=== PATIENT | male | born 1980 | race Caucasian/White ===

== ENCOUNTER 2020-06-13 06:19 | Emergency (ER) | payer MEDICAID ==
[~2020-06-13] VITALS: Ht 190.5 cm; Wt 113.4 kg
--- NOTE | 2020-06-13 06:21 | NUR ---
PATIENT TAKEN TO BED 11 VIA GURNEY BY EMS.
[2020-06-13 06:22] VITALS: BP 129/50
[2020-06-13] MEDS ORDERED: ASPIRIN 81 MG TAB.CHEW PO ONE (06:25)
--- NOTE | 2020-06-13 06:30 | NUR ---
SEE COMPLETE ASSESSMENT.
--- NOTE | 2020-06-13 06:35 | NUR ---
LABS DRAWN AND TAKEN TO LAB.
[2020-06-13 06:58] LABS: BASOPHILS # (AUTO) 0.1 K/uL (0.00-0.22); BASOPHILS % (AUTO) 0.9 % (0.0-2.0); EOSINOPHILS # (AUTO) 0.7 K/uL (0-0.4); EOSINOPHILS % (AUTO) 6.8 % (0.0-4.0); HEMATOCRIT 45.6 % (36-52); HEMOGLOBIN 14.9 g/dL (12.0-18.0); LYMPHOCYTES # (AUTO) 3.3 K/uL (2.0-11.5); LYMPHOCYTES % (AUTO) 32.5 % (20.5-51.1); MEAN CORPUSCULAR HEMOGLOBIN 27 pg (27-31); MEAN CORPUSCULAR HGB CONC 33 g/dL (33-37); MEAN CORPUSCULAR VOLUME 83.8 fL (80-94); MONOCYTES # (AUTO) 0.8 K/uL (0.8-1.0); MONOCYTES % (AUTO) 7.4 % (1.7-9.3); NEUTROPHILS # (AUTO) 5.3 K/uL (1.8-7.7); NEUTROPHILS % (AUTO) 52.4 % (42.2-75.2); PLATELET COUNT (AUTO) 233 K/uL (140-450); RED BLOOD CELL COUNT(AUTO) 5.44 MIL/uL (4.20-6.10); RED CELL DISTRIBUTION WIDTH 14.2 % (11.6-13.7); WHITE BLOOD COUNT (AUTO) 10.2 K/uL (4.8-10.8)
[2020-06-13 07:03] LABS: ALBUMIN 4.1 g/dL (3.4-5.0); ANION GAP 14.7 (8-16); CARBON DIOXIDE 25.5 mmol/L (21-32); CREATININE 0.9 mg/dL (0.6-1.3); POTASSIUM 4.2 mmol/L (3.5-5.1); TOTAL BILIRUBIN 0.7 mg/dL (0.0-1.0)
--- NOTE | 2020-06-13 07:16 | NUR ---
REPORT GIVEN TO HELADIO ARDON. TRANSFER OF CARE.
--- NOTE | 2020-06-13 07:28 | NUR ---
XRAY AT BEDSIDE.
[2020-06-13] MEDS ORDERED: NACL 0.9% 500 ML IV ONE (07:50)
[2020-06-13] MEDS ORDERED: KETOROLAC 30 MG/ML VIAL IVP ONE (07:50)
--- NOTE | 2020-06-13 09:54 | NUR ---
COVID SWAB PERFORMED AT BEDSIDE
[2020-06-13 10:42] VITALS: BP 129/81
--- NOTE | 2020-06-14 08:47 | NUR ---
LATE ENTRY -- NORMAL SALINE INFUSION COMPLETED AT 0914 06/13/20
== END 2020-06-13 10:43 | disposition home or self-care (01) ==
LOC: MED 06:19
DX: R07.9 Chest pain, unspecified (principal); I10 Essential (primary) hypertension; F17.200 Nicotine dependence, unspecified, uncomplicated; Z20.828 Contact with and (suspected) exposure to other viral communicable diseases
CPT/HCPCS: 36415; 71045; 80053; 83880; 84484; 85025; 85379; 87426; 93005; 96361; 96374; 99285; J1885; J7030

== ENCOUNTER 2020-09-20 10:06 | Emergency (ER) | payer MEDICAID ==
[~2020-09-20] VITALS: Ht 190.5 cm; Wt 112.0 kg
--- NOTE | 2020-09-20 10:06 | NUR ---
Patient BIBA ALS, transferred to bed 8. RN evaluating the patient at bedside.
[2020-09-20] MEDS ORDERED: ASPIRIN 81 MG TAB.CHEW PO ONE (10:20)
[2020-09-20] MEDS ORDERED: NITROGLYCERIN 0.4 MG TAB SL ONE (10:20)
--- NOTE | 2020-09-20 10:25 | NUR ---
OSIEL TURNER COLLECTED.
[2020-09-20 10:32] VITALS: BP 141/78
--- NOTE | 2020-09-20 10:35 | NUR ---
39 Y/O M BIBA FROM HOME, PATIENT PRESENTS TO ED WITH C/O CHEST PAIN THAT STARTED TODAY. PT STATES HE FEELS DIZZY, BUT DENIES SOB, N&V, LOC, ABD PAIN OR HEADACHE. AMB STATES HE HAD A NSR 69; SKIN IS PINK/WARM/DRY; AAOX4 WITH EVEN AND STEADY GAIT; LUNGS CLEAR BL; HR EVEN AND REGULAR; PT DENIES ANY FEVER, SOB, OR COUGH AT THIS TIME; PATIENT STATES PAIN OF 6/10 AT THIS TIME, PAIN COMES AND GOES; VSS; PATIENT POSITIONED FOR COMFORT; HOB ELEVATED; BEDRAILS UP X2; BED DOWN. ER MD MADE AWARE OF PT STATUS. NKA MED: KEPPRE "THIS MEDICATION DOESNT MAKE ME FEEL GOOD PMH: SEIZURES, HTN
--- NOTE | 2020-09-20 10:40 | NUR ---
Dr. Guzmán is evaluating the patient at bedside.
[2020-09-20 10:43] LABS: BASOPHILS # (AUTO) 0.1 K/uL (0.00-0.22); BASOPHILS % (AUTO) 1.1 % (0.0-2.0); EOSINOPHILS # (AUTO) 0.4 K/uL (0-0.4); EOSINOPHILS % (AUTO) 5.9 % (0.0-4.0); HEMOGLOBIN 15.9 g/dL (12.0-18.0); LYMPHOCYTES # (AUTO) 1.8 K/uL (2.0-11.5); LYMPHOCYTES % (AUTO) 24.2 % (20.5-51.1); MEAN CORPUSCULAR HEMOGLOBIN 27 pg (27-31); MEAN CORPUSCULAR HGB CONC 32 g/dL (33-37); MEAN CORPUSCULAR VOLUME 84.1 fL (80-94); MONOCYTES # (AUTO) 0.5 K/uL (0.8-1.0); MONOCYTES % (AUTO) 7.2 % (1.7-9.3); NEUTROPHILS # (AUTO) 4.7 K/uL (1.8-7.7); NEUTROPHILS % (AUTO) 61.6 % (42.2-75.2); PLATELET COUNT (AUTO) 246 K/uL (140-450); RED BLOOD CELL COUNT(AUTO) 5.83 MIL/uL (4.20-6.10); RED CELL DISTRIBUTION WIDTH 13.8 % (11.6-13.7); WHITE BLOOD COUNT (AUTO) 7.6 K/uL (4.8-10.8)
--- NOTE | 2020-09-20 11:14 | NUR ---
Dr. Guzmán is reevaluating the patient at bedside.
--- NOTE | 2020-09-20 11:30 | NUR ---
INFORMED PT ABOUT WAITING ON THE RESULTS OF CHEMISTRY LABS, LABS WERE SENT TO OTHER HOSPITAL DUE TO OUR MACHINE NOT WORKING. PT STATES "i HAVE TO BE AT WORK SOON SO THEY HAVE TO BE HERE BEFORE 2"
[2020-09-20 12:40] LABS: ANION GAP 12.9 (8-16); CARBON DIOXIDE 24.3 mmol/L (21-32); POTASSIUM 4.2 mmol/L (3.5-5.1)
[2020-09-20 12:41] LABS: ALBUMIN 4.1 g/dL (3.4-5.0); CREATININE 0.9 mg/dL (0.6-1.3); TOTAL BILIRUBIN 0.2 mg/dL (0.0-1.0)
[2020-09-20 13:05] VITALS: BP 141/78
--- NOTE | 2020-09-20 13:05 | NUR ---
Patient discharged with v/s stable. Written and verbal after care instructions given and explained. Patient verbalized understanding. Ambulatory with steady gait. All questions addressed prior to discharge. Advised to follow up with PMD.
== END 2020-09-20 13:05 | disposition home or self-care (01) ==
LOC: MED 10:06
DX: R07.9 Chest pain, unspecified (principal); R56.9 Unspecified convulsions; I10 Essential (primary) hypertension; F17.210 Nicotine dependence, cigarettes, uncomplicated; Z20.822 Contact with and (suspected) exposure to COVID-19
CPT/HCPCS: 36415; 71045; 80053; 83880; 84484; 85025; 93005; 99285